=== PATIENT | female | born 1955 | race Two or more races ===

== ENCOUNTER 2018-06-22 13:48 | Emergency (ER) | payer SELFPAY ==
[~2018-06-22] VITALS: Ht 154.9 cm; Wt 65.8 kg
[2018-06-22 14:51] VITALS: BP 156/77
== END 2018-06-22 15:16 | disposition home or self-care (01) ==
LOC: EDBD 13:48 → ER 13:51
DX: S02.2XXA Fracture of nasal bones, initial encounter for closed fracture (principal); S09.90XA Unspecified injury of head, initial encounter; E78.5 Hyperlipidemia, unspecified; Z90.49 Acquired absence of other specified parts of digestive tract; W19.XXXA Unspecified fall, initial encounter; Y93.89 Activity, other specified; Y92.89 Other specified places as the place of occurrence of the external cause; Y99.8 Other external cause status
CPT/HCPCS: 70450; 70486